=== PATIENT | female | born 1990 | race African-American/Black ===

== ENCOUNTER → 2025-02-15 08:05 | Outpatient (CLI) | payer OTHER, SELFPAY ==
--- NOTE | 2025-02-15 08:07 | DI.US.S_ITS ---
PROCEDURE: US PELVIC COMPLETE INDICATIONS: deep LLQ dyspareunia and LLQ aching pain when laying flat, TECHNIQUE: Real-time scanning was performed of the pelvic organs, with image documentation. Additional endovaginal scanning was necessary due to incomplete visualization of the adnexal and endometrial structures by transabdominal scanning. COMPARISON: None. FINDINGS: Uterus: Uterus is anteverted and normal in size at 7.3 x 4.2 x 5.8 cm. The myometrium is homogeneous. The endometrium measures 6 mm combined thickness. There is a 1.5 x 1.1 x 1.4 cm right posterior intramural uterine fibroid. Ovaries: The right ovary measures 1.9 x 3.4 x 1.6 cm, with a calculated ovarian volume of 5.5 cc. The left ovary measures 3.2 x 1.9 x 2.5 cm, with a calculated ovarian volume of 7.9 cc. The ovaries have a normal sonographic appearance. There greater than 12 follicles noted in the ovaries. No adnexal masses are seen. Other: No pathologic free abdominal or pelvic fluid. IMPRESSION: Pelvic ultrasound without acute sonographic abnormalities. Greater than 12 follicles noted in the bilateral ovaries without significant increase in ovarian volumes. Although findings meet the [place] definition of polycystic ovaries, in the absence of ovulatory dysfunction or clinically/biochemically diagnosed hyperandrogenism, findings are non specific and do not indicate the presence of polycystic ovarian syndrome. We strive to produce accurate, complete, and clear reports of imaging services. To assist us in improving patient care, this report was composed using standard report templates and voice recognition software. Therefore, it may contain abnormal punctuation, insertions and/or omissions. Occasional wrong-word or sound-alike substitutions may occur. Though we review the report and make efforts to correct it, we do recommend that the report be read carefully in proper context to recognize any text inaccuracies. Dictated by: Bryce Pryor M.D. on 02/15/2025 at 11:50 Approved by: Bryce Pryor M.D. on 02/15/2025 at 11:54
== END ==
PROVIDERS: Referring Provider Obstetrics & Gynecology; Visit Provider Obstetrics & Gynecology
DX: R10.2 Pelvic and perineal pain (principal); N94.12 Deep dyspareunia; D25.1 Intramural leiomyoma of uterus
CPT/HCPCS: 76830; 76856

== ENCOUNTER → 2025-02-18 09:21 | Outpatient (CLI) | payer OTHER, SELFPAY | LOC: LAB 09:21 | PROVIDERS: Visit Provider Obstetrics & Gynecology | DX: R10.32 Left lower quadrant pain (principal) | CPT/HCPCS: 87491; 87563; 87591 ==